=== PATIENT | female | born 1985 | race Caucasian/White ===

== ENCOUNTER 2016-12-04 21:46 | Emergency (ER) | payer BC ==
[~2016-12-04] VITALS: Ht 160 cm; Wt 105.6 kg
[~2016-12-04 21:46] MED LIST: ZFRODT4 SL; [UNRECOGNIZED DRUG - OTHER]
[2016-12-04 21:59] VITALS: TEMP 36.7; Ht 160 cm; Wt 105.6 kg
[2016-12-04] MEDS ORDERED: PRENTAB26 PO (22:48)
[2016-12-04] MEDS ORDERED: ASPI81TA28 PO (22:49)
--- NOTE | 2016-12-04 23:40 | EMERGENCY ROOM VISIT NOTE ---
History Report prepared by Vinny: Hanna Ahuja Under the Supervision of: Dr. Niya Snow D.O. First contact with patient: 23:07 Chief Complaint: FOREIGNBODY ANY BODY PART Stated Complaint: BUG IN EAR, CANT GET OUT History of Present Illness The patient is a 31 year old female who presents to the Emergency Room with complaints of a persistent foreign body to the right ear that began prior to arrival. She currently rates her discomfort as a 2/10 in severity. The patient states that today she was outside and a bug flew into her ear. She states that the bug was flying around, but has not flown out. The patient states that the bug has not been moving around as much. She denies the area being itchy. Source of History: patient Onset: prior to arrival Position: ear (right) Symptom Intensity: 2/10 Quality: other (foreign body) Timing: other (persistent) Review of Systems Patient felt bug moving in the ear. Past Medical & Surgical No active medical problems stated. Family History No pertinent family history stated. Social History Smoking Status: Never Smoker Marital Status: Housing Status: lives with family Current/Historical Medications Scheduled Aspirin (Aspirin Ec), 81 MG PO DAILY Multivit/Min/Iron/Fol Ac/Pren ( Vitamin), 1 TAB PO DAILY Allergies Uncoded Allergies: NKDA (Allergy, Mild, 12/13/05) Physical Exam Vital Signs Date Time Temp Pulse Resp B/P (MAP) Pulse Ox O2 Delivery O2 Flow Rate FiO2 12/04/16 23:58 86 18 139/90 99 12/04/16 21:59 36.7 86 16 163/104 99 Room Air Physical Exam Right Ear Exam: Tympanic membrane appears normal, wing of the insect is flush against Tympanic membrane. Ear canal and TM appear normal. Medical Decision & Procedures ED Course 2332: Past medical records reviewed. The patient was evaluated in room B11A. A complete history and physical exam was performed. Nursing staff performed irrigation with normal saline solution. 2350: I reevaluated the patient and she is doing well. Nursing staff reports that they successfully removed the bug from the patients ear. I discussed the treatment plan with the patient and she verbalized complete understanding and agreement. The patient is ready to go home. Medical Decision This is a 31-year-old female patient who had an insect in the right ear. This was successfully removed with irrigation. Medication Reconcilliation Current Medication List: was personally reviewed by me Blood Pressure Screening Patient's blood pressure: Elevated blood pressure Blood pressure disposition: Elevated BP felt to be situational Impression Primary Impression: Foreign body of ear, right Scribe Attestation The scribe's documentation has been prepared under my direction and personally reviewed by me in its entirety. I confirm that the note above accurately reflects all work, treatment, procedures, and medical decision making performed by me. Departure Information Dispostion Home / Self-Care Referrals No Doctor, Assigned (PCP) Forms HOME CARE DOCUMENTATION FORM, IMPORTANT VISIT INFORMATION, WORK / SCHOOL INSTRUCTIONS Patient Instructions [facility]
[2016-12-04 23:58] VITALS: BP 139/90; PULSE 86; O2SAT 99
[2017-02-03] MEDS ORDERED: GLYB5TAB8 PO (13:10)
== END 2016-12-04 23:58 | disposition home or self-care (01) ==
LOC: C.EDB 21:52
DX: S00.451A Superficial foreign body of right ear, initial encounter (principal); X58.XXXA Exposure to other specified factors, initial encounter; Z79.82 Long term (current) use of aspirin

== ENCOUNTER 2017-02-08 15:33 | Inpatient (IN) | payer BC ==
--- NOTE | 2017-02-03 13:33 | PAT Medication Instructions ---
Service Date Feb 03, 2017. Current Home Medication List Aspirin (Aspirin Ec), 81 MG PO QPM Glyburide (Micronase), 5 MG PO QPM Multivit/Min/Iron/Fol Ac/Pren ( Vitamin), 1 TAB PO QPM Medication Instructions For Your Scheduled Surgery - Follow surgeon's instructions for: Aspirin (Aspirin Ec), 81 MG PO QPM - Take the following medications as scheduled the night before surgery: Multivit/Min/Iron/Fol Ac/Pren ( Vitamin), 1 TAB PO QPM Glyburide (Micronase), 5 MG PO QPM If you have any questions please call us at [phone] or [phone] or [phone]
[2017-02-03 14:56] LABS: BASO % 0.2 %; BASO ABS # 0.02 K/uL (0-0.2); COMPLETE YES; EOS % 1.2 %; HEMATOCRIT 38.8 % (37-47); IG% 0.2 %; LYMPH % 16.6 %; LYMPH ABS # 1.71 K/uL (1.2-3.4); MEAN CELL VOLUME 85.7 fL (80-100); MEAN CORPUSCULAR HEMOGLOBIN 28.5 pg (25-34); MEAN CORPUSCULAR HGB CONC 33.2 g/dl (32-36); MONO % 6.6 %; NEUT % 75.2 %; PLATELET COUNT 205 K/uL (130-400); RED BLOOD COUNT 4.53 M/uL (4.2-5.4); WHITE BLOOD COUNT 10.31 K/uL (4.8-10.8)
[2017-02-03 15:06] LABS: BLOOD UREA NITROGEN 12 mg/dl (7-18); BUN/CREATININE RATIO 18.8 (10-20); CALCIUM 8.8 mg/dl (8.5-10.1); CARBON DIOXIDE 24 mmol/L (21-32); CHLORIDE 106 mmol/L (98-107); CREATININE 0.64 mg/dl (0.60-1.20); GLUCOSE 102 mg/dl (70-99); POTASSIUM 3.8 mmol/L (3.5-5.1); SODIUM 138 mmol/L (136-145)
[~2017-02-08] VITALS: Ht 160 cm; Wt 108.6 kg
[~2017-02-08 15:33] MED LIST changes: +ASPI81TA28 PO; +CITRIC ACID/SODIUM CITRATE 15 ML UDC PO SCH; +GLYB5TAB8 PO; +PRENTAB26 PO; -ZFRODT4 SL; -[UNRECOGNIZED DRUG - OTHER]
[2017-02-08 16:09] VITALS: BMI 42.4
[2017-02-08] MEDS: LACTATED RINGER'S 1000ML 1,000 ML IV SCH ×2 (16:31→17:31)
[2017-02-08] MEDS ORDERED: CEFAZOLIN IV 3,000 MG in DEXTROSE 5% 50ML 50 ML IV SCH (16:45)
[2017-02-08 16:54] LABS: BASO % 0.2 %; BASO ABS # 0.02 K/uL (0-0.2); COMPLETE YES; EOS % 0.9 %; HEMATOCRIT 38.6 % (37-47); IG% 0.1 %; LYMPH % 20.2 %; LYMPH ABS # 1.64 K/uL (1.2-3.4); MEAN CELL VOLUME 86.4 fL (80-100); MEAN CORPUSCULAR HGB CONC 32.4 g/dl (32-36); MEAN PLATELET VOLUME 12.1 fL (7.4-10.4); MONO % 10.7 %; NEUT % 67.9 %; PLATELET COUNT 200 K/uL (130-400); RED BLOOD COUNT 4.47 M/uL (4.2-5.4); WHITE BLOOD COUNT 8.12 K/uL (4.8-10.8)
[2017-02-08 17:10] VITALS: Ht 160 cm; Wt 108.6 kg
[2017-02-08 17:20] LABS: BUN/CREATININE RATIO 24.1 (10-20); CALCIUM 8.8 mg/dl (8.5-10.1); CREATININE 0.66 mg/dl (0.60-1.20)
[2017-02-08 17:23] LABS: ALB/GLOB RATIO 0.6 (0.9-2)
[2017-02-08] MEDS ORDERED: PENICILLIN G POTASSIUM IV 6 MU in DEXTROSE 5% 250ML 250 ML IV ONE (17:30)
[2017-02-08] MEDS ORDERED: LACTATED RINGER'S 1000ML 1,000 ML IV SCH ×2 (18:30→22:43)
--- NOTE | 2017-02-08 19:43 | HISTORY & PHYSICAL EXAMINATION ---
DATE OF ADMISSION: 02/08/2017 CHIEF COMPLAINT: Leakage of fluid. HISTORY OF PRESENT ILLNESS: The patient is a 31-year-old G2, P0-1-0-1 at 39 weeks and 2 days of gestation, who felt leakage of fluid at around 14:50 p.m. this afternoon. It was a big guns and clear. Then she had a little bit of bloody tinged/ pink LOF afterwards. She denies any contractions, abdominal pain, fever, chills, chest pain, shortness of breath, headache or any change in her vision. Baby has been moving. She was originally scheduled for a repeat for this coming 02/11/2017. She has a Her has been complicated by 1) History of prior for severe preeclampsia and nonreassuring heart rate at 27 weeks at [facility]. 2) gestational diabetes A2. She is on glyburide 5 mg daily. 3) GBS positive 4) Obesity class 2. PAST MEDICAL HISTORY: As above. She denies any other problems. PAST SURGICAL HISTORY: section in 2009 and dental surgery, wisdom teeth extraction. MEDICATIONS: vitamins, glyburide 5 mg daily and aspirin 81 mg daily. ALLERGIES: No known drug allergies. SOCIAL HISTORY: The patient denies any smoking, alcohol, or drug use. GYNECOLOGIC HISTORY: The patient has a history of STDs including Chlamydia, gonorrhea and herpes. OBSTETRICAL HISTORY: As above. LABORATORIES: Her blood type is A positive, antibody screen negative. H&H was 13/40, platelets 236, rubella titer positive, RPR nonreactive, hepatitis B surface antigen negative, HIV negative, GC chlamydia cultures were negative. Baseline liver function, creatinine and 24-hour urine protein were normal. Her 1-hour Glucola was elevated at 138 mg/dl and 3-hour OGGT was abnormal meeting criteria for diagnosis of gestational diabetes. GBS culture was positive on 01/09/2017. PHYSICAL EXAMINATION: GENERAL: The patient is alert, oriented x3, not in acute distress. CARDIOVASCULAR SYSTEM: S1, S2, RRR. LUNGS: Clear to auscultation bilaterally. ABDOMEN: Soft, gravid and nontender. EXTREMITIES: Nontender, no edema. VITAL SIGNS: Blood pressure is 137/84, respirations 20, pulse 81 and temperature 98.1. PELVIC: She is grossly ruptured Nitrazine positive and positive ferning on the slide. Cervix is 2 cm dilated, 30% effaced, -5 and unable to feel presenting parts. Bedside ultrasound was done and baby is cephalic. heart rate in 140s, category I [place]: mild irregular contractions every 2-6 minutes. ASSESSMENT AND PLAN: The patient is a 31-year-old G2, P0-1-0-1 at 39 weeks and 2 days of gestation, history of prior , presenting with spontaneous rupture of membranes at term. Vital signs are stable, afebrile. heart rate reassuring. GBS positive. Plan is to admit her, start IV fluids, IV antibiotics and repeat low transverse section. The patient understands the risks of bleeding, infection, injury to surrounding organs like bowels, bladder and ureters, increased risk of blood clots in legs, lungs and adhesions, scarring, future risk of repeat C- section She signed the informed consent. All questions were answered. VIELKA
[2017-02-08] MEDS ORDERED: FENTANYL CITRATE INJ 50 MCG/1 ML 2 ML VIAL ONE (20:59)
[2017-02-08] MEDS ORDERED: MORPHINE SULFATE PF 2MG/2ML SYR ONE (20:59)
[2017-02-08] MEDS ORDERED: OXYTOCIN INJ 10 UNITS/ML VIAL ONE (22:01)
[2017-02-08] MEDS ORDERED: OXYTOCIN INJ 20 UNITS in D5W AND LACTATED RINGERS 1,000 ML IV SCH (22:43)
[2017-02-08] MEDS ORDERED: PROMETHAZINE HCL INJ 25 MG in SODIUM CHLORIDE 0.9% 50ML 50 ML IV PRN (22:45)
[2017-02-08] MEDS ORDERED: LANOLIN OINT EXT PRN ×2 (22:45)
[2017-02-08] MEDS ORDERED: BENZOCAINE 20% AER SPR 82.5 GM CAN EXT PRN (22:45)
[2017-02-08] MEDS ORDERED: MAGNESIUM HYDROXIDE SUSP 30 ML UDC PO PRN (22:45)
[2017-02-08] MEDS ORDERED: DIPHTHERIA/TETANUS/PERTUSSIS 0.5 ML SYR/VIAL IM. ONE (22:45)
[2017-02-08] MEDS ORDERED: HYDROCORTISONE ACETATE 25 MG SUPP PR PRN (22:45)
[2017-02-08] MEDS ORDERED: SENNA 8.6 MG TAB PO PRN (22:45)
[2017-02-08] MEDS ORDERED: MEASLES, MUMPS & RUBELLA VIRUS VIAL SQ. ONE (22:45)
[2017-02-08] MEDS ORDERED: SUPERCREAM 0.870 % 15GM JAR EXT PRN (22:45)
--- NOTE | 2017-02-08 22:47 | [facility] Post Operative Brief Note ---
Immediate Operative Summary Operative Date Feb 08, 2017. Pre-Operative Diagnosis Repeat Caesarean, PROM Post-Operative Diagnosis Repeat Caesarean, AGUSTÍN Procedure(s) Performed Caesaran Delivery of live male child at [address] Palmer Plasterer Apprentice Surgeon(s) Dr. Coughlin Estimated Blood Loss 600ML Findings Viable male , apgars 9/9 Fluids (cc crystalloids) 1500 ML LR Specimens Placenta - Exam cord blood Drains DREW 200 ML Anesthesia SPINAL Complication(s) None Disposition L&D
[2017-02-08] MEDS ORDERED: LACTATED RINGER'S 1000ML 500 ML IV PRN (22:55)
[2017-02-08] MEDS ORDERED: SODIUM CHLORIDE 0.9% 1000ML 1,000 ML IV PRN (22:55)
[2017-02-08] MEDS ORDERED: NALOXONE HCL INJ 0.08 MG in SYRINGE 1.8 ML IV PRN (22:55)
[2017-02-08] MEDS ORDERED: NALOXONE HCL INJ 1 MG in SODIUM CHLORIDE 0.9% 1000ML 1,000 ML IV PRN (22:55)
--- NOTE | 2017-02-08 22:58 | Anesthesiology Progress Note ---
Anesthesia Post Op Note Date & Time Feb 08, 2017 at 22:57 Notes Mental Status: alert / awake / arousable, participated in evaluation Pt Amnestic to Procedure: Yes Nausea / Vomiting: adequately controlled Pain: adequately controlled Airway Patency, RR, SpO2: stable & adequate BP & HR: stable & adequate Hydration State: stable & adequate Neuraxial Anesthesia: was administered, sensory block is resolving Anesthetic Complications: no major complications apparent
[2017-02-08] MEDS ORDERED: NALOXONE HCL 0.4 MG/1 ML VIAL/CARP IV PRN (23:00)
[2017-02-08] MEDS ORDERED: MoRPHine SULFATE PF 1 MG/ML 10 ML AMP/VIAL EPI PRN (23:00)
[2017-02-08] MEDS ORDERED: ONDANSETRON INJ 2 MG/ML 2 ML VIAL IV PRN (23:00)
[2017-02-08] MEDS ORDERED: EpHEDrine SULFATE INJ 50 MG/ML AMP IV PRN (23:00)
[2017-02-08] MEDS ORDERED: MoRPHine SULFATE 2 MG/ML CARP IV PRN (23:00)
[2017-02-08] MEDS ORDERED: MEPERIDINE HCL 25 MG/ML CARP IV PRN (23:00)
[2017-02-08] MEDS ORDERED: NALBUPHINE HCL INJ 10 MG/ML AMP IV PRN (23:00)
[2017-02-08] MEDS ORDERED: DC INTRASPINAL MORPHINE SCH (23:00)
[2017-02-08] MEDS ORDERED: NO NARCOTICS OR SEDATIVES SCH (23:00)
[2017-02-08] MEDS ORDERED: DiphenhydrAMINE HCL 50 MG/ML VIAL IV PRN (23:00)
--- NOTE | 2017-02-08 23:32 | OPERATIVE REPORT ---
DATE OF OPERATION: 02/08/2017 PREOPERATIVE DIAGNOSIS: The patient is a 31-year-old G2, P0-1-0-1 at 39 weeks and 2 days of gestation, presented with premature rupture of membranes at term. History of prior , desires repeat . Declines TOLAC/ . POSTOPERATIVE DIAGNOSIS: Same and intraabdominal adhesions of omentum to anterior abdominal wall. PROCEDURE: Repeat low transverse with Pfannenstiel incision and lysis of adhesions. SURGEON: Dr. Falk. COMPUTER GRAPHIC ARTIST: Dr. Coughlin. ESTIMATED BLOOD LOSS: 600. FLUIDS: 1500 mL of lactated Ringer. SPECIMENS: Placenta and cord blood. DRAINS: Mon drained 200 mL of clear urine. ANESTHESIA: Spinal. COMPLICATIONS: None. FINDINGS: Baby was a viable male in cephalic presentation, delivered at 21:57 p.m. and Apgars 9/9. Weight is 3240 grams which is 7 pounds 2 ounces. Maternal findings: Normal uterus, fallopian tubes and ovaries. There were scarring on the rectus fascia and between the rectus muscles and there were adhesions of omentum onto the anterior abdominal wall and rectus abdominus muscles. PROCEDURE: The patient was taken to the operating room where spinal anesthesia was given without difficulty. She was placed in dorsal supine position with a leftward tilt. She was prepared and draped in usual sterile fashion. A Pfannenstiel skin incision was made and carried through the underlying layer of fascia with the Bovie. There was scarring on the rectus fascia which were reduced with the Lin scissors and the tip of Bovie. The rectus muscles were in the midline. There were noted to be adhesion in the middle of the rectus muscles and there were adhesions of omentum behind the abdominal wall / the rectus sheath. Then the rectus muscles were sharply with with Lin scissors. The adhesions behind the rectus sheet were found to be omentum. They were brought to the midline and they were incised with the tip of Bovie. Attention was made to push the bowels away from the surgical field and the rectus muscles were in the midline completely. The bladder was checked to be down into the pelvis and was not involved to the adhesions. The parietal peritoneal incision was extended superiorly and inferiorly with good visualization of the bladder and bowel and then bladder blade was inserted. The lower uterine segment was found to be free from adhesions as intact. The vesicouterine peritoneum was identified, grasped with pickups, entered sharply with Metzenbaum scissors and bladder flap was created digitally and bladder blade was reinserted. Lower uterine segment was incised in transverse fashion. Incision was extended laterally with the help of bandage scissors and the membranes were ruptured. Clear fluid was obtained and baby's head was delivered without difficulty. There was a nuchal cord around the neckx1 which was loose. It was reduced and the shoulders were delivered with minimal traction and mouth and nose were suctioned. Cord was clamped x2 and cut. The baby was handed off to the awaiting director advertising, Dr. Cabrales. Cord blood was obtained and tt was a 3-vessel cord. The placenta was delivered manually as intact and complete. Uterus was exteriorized, cleared of all clots and debris. The uterine incision was repaired with 0 Vicryl in a running locked fashion. A second imbricating layer was placed with 0 Vicryl in a running locked fashion and excellent hemostasis was achieved. Posterior cul-de-sac was checked to be normal, bilateral normal ovaries were seen and it was irrigated with warm normal saline and suctioned. The uterus was returned to the abdomen and pelvis was irrigated with warm normal saline and suctioned and incision was checked to be again hemostatic. Parietal peritoneum was identified, grasped with Precious clamps. It was found to be attached to the rectus muscle bilaterally. The parietal peritoneum with the rectus muscles were reapproximated with 3-0 Vicryl in a running fashion and the rectus fascia was reapproximated with #1 Vicryl in a running fashion starting from both corners meeting in the midline and subcuticular fat tissue was brought together with 3-0 Vicryl in a running fashion. The skin was closed with 4-0 Monocryl in a subcuticular fashion. The patient tolerated the procedure well. Sponge, lap, needle and instrument counts were correct x3. She was given 3 grams of cefazolin before surgery. She was taken to recovery room in stable condition. No complications happened. I and Dr Coughlin was present during the whole procedure. I attest to the content of the Intraoperative Record and any orders documented therein. Any exceptions are noted below. VIELKA
[2017-02-09] VITALS (25 sets, daily range): BP systolic 113–138; BP diastolic 75–87; PULSE 70–89; TEMP 36.6–36.9; O2SAT 95–100
[2017-02-09] MEDS: OXYTOCIN INJ 20 UNITS in LACTATED RINGER'S 1000ML 1,000 ML IV SCH ×2 (00:48→09:55)
[2017-02-09] MEDS: KETOROLAC TROMETHAMINE 30 MG/ML VIAL IV. PRN ×3 (03:38→19:28)
[2017-02-09 06:51] LABS: BASO % 0.3 %; BASO ABS # 0.03 K/uL (0-0.2); COMPLETE YES; EOS % 0.6 %; HEMATOCRIT 35.1 % (37-47); IG% 0.3 %; LYMPH % 14.6 %; LYMPH ABS # 1.73 K/uL (1.2-3.4); MEAN CELL VOLUME 85.6 fL (80-100); MEAN CORPUSCULAR HEMOGLOBIN 28.8 pg (25-34); MEAN CORPUSCULAR HGB CONC 33.6 g/dl (32-36); MEAN PLATELET VOLUME 11.6 fL (7.4-10.4); MONO % 5.1 %; NEUT % 79.1 %; PLATELET COUNT 163 K/uL (130-400); WHITE BLOOD COUNT 11.86 K/uL (4.8-10.8)
[2017-02-09] MEDS: FERROUS SULFATE 325 MG TAB PO SCH (09:12)
[2017-02-09] MEDS: DOCUSATE SODIUM 100 MG CAP PO SCH ×2 (09:12→20:05)
[2017-02-09] MEDS: PRENATAL VITAMIN TAB PO SCH (09:13)
[2017-02-09] MEDS: SIMETHICONE 80 MG CHEW PO SCH ×4 (09:14→20:05)
--- NOTE | 2017-02-09 11:09 | Surgery Progress Note ---
Surgery Progress Note Date of Service Feb 09, 2017. Subjective Post OP Day: 1 + feeling well Objective Vital Signs: Date Time Temp Pulse Resp B/P (MAP) Pulse Ox O2 Delivery O2 Flow Rate FiO2 02/09/17 08:00 98 Room Air 02/09/17 08:00 98 Room Air 02/09/17 07:30 18 98 02/09/17 07:27 36.7 80 20 135/76 (95) 100 Room Air 02/09/17 06:20 16 95 02/09/17 05:30 16 100 02/09/17 04:30 16 100 02/09/17 04:30 36.7 79 16 132/80 (97) 100 Room Air 02/09/17 03:15 18 98 02/09/17 02:15 36.6 70 16 125/78 (94) 99 Room Air 02/09/17 02:10 16 99 02/09/17 01:10 96 Room Air 02/09/17 01:10 36.7 75 18 138/87 (104) 96 Room Air 02/09/17 01:10 96 Room Air 02/09/17 01:10 18 96 Abdomen: non tender, non distended, soft Extremities: non-tender, normal inspection, no pedal edema Laboratory Results: Results Past 24 Hours Test 02/08/17 16:41 02/09/17 06:32 Range/Units White Blood Count 8.12 11.86 4.8-10.8 K/uL Red Blood Count 4.47 4.10 4.2-5.4 M/uL Hemoglobin 12.5 11.8 12.0-16.0 g/dL Hematocrit 38.6 35.1 37-47 % Mean Corpuscular Volume 86.4 85.6 80-100 fL Mean Corpuscular Hemoglobin 28.0 28.8 25-34 pg Mean Corpuscular Hemoglobin Concent 32.4 33.6 32-36 g/dl Platelet Count 200 163 130-400 K/uL Mean Platelet Volume 12.1 11.6 7.4-10.4 fL Neutrophils (%) (Auto) 67.9 79.1 % Lymphocytes (%) (Auto) 20.2 14.6 % Monocytes (%) (Auto) 10.7 5.1 % Eosinophils (%) (Auto) 0.9 0.6 % Basophils (%) (Auto) 0.2 0.3 % Neutrophils # (Auto) 5.51 9.40 1.4-6.5 K/uL Lymphocytes # (Auto) 1.64 1.73 1.2-3.4 K/uL Monocytes # (Auto) 0.87 0.60 0.11-0.59 K/uL Eosinophils # (Auto) 0.07 0.07 0-0.5 K/uL Basophils # (Auto) 0.02 0.03 0-0.2 K/uL RDW Standard Deviation 47.3 46.7 36.4-46.3 fL RDW Coefficient of Variation 15.0 14.9 11.5-14.5 % Immature Granulocyte % (Auto) 0.1 0.3 % Immature Granulocyte # (Auto) 0.01 0.03 0.00-0.02 K/uL Sodium Level 139 136-145 mmol/L Potassium Level 4.0 3.5-5.1 mmol/L Chloride Level 109 98-107 mmol/L Carbon Dioxide Level 21 21-32 mmol/L Anion Gap 9.0 3-11 mmol/L Blood Urea Nitrogen 16 7-18 mg/dl Creatinine 0.66 0.60-1.20 mg/dl Est Creatinine Clear Calc Drug Dose 146.0 ml/min Estimated GFR () 136.4 Estimated GFR (Non- 117.7 BUN/Creatinine Ratio 24.1 10-20 Random Glucose 87 70-99 mg/dl Calcium Level 8.8 8.5-10.1 mg/dl Total Bilirubin 0.1 0.2-1 mg/dl Aspartate Amino Transf (AST/SGOT) 21 15-37 U/L Alanine Aminotransferase (ALT/SGPT) 16 12-78 U/L Alkaline Phosphatase 104 45-117 U/L Total Protein 6.4 6.4-8.2 gm/dl Albumin 2.5 3.4-5.0 gm/dl Globulin 3.9 2.5-4.0 gm/dl Albumin/Globulin Ratio 0.6 0.9-2 Assessment & Plan regular diet POD#1 advance diet/care
[2017-02-09] MEDS ORDERED: MEPERIDINE HCL 50 MG/ML CARP IV PRN ×2 (21:30)
[2017-02-09] MEDS ORDERED: ONDANSETRON INJ 2 MG/ML 2 ML VIAL IV PRN (21:30)
[2017-02-09] MEDS ORDERED: OXYCODONE/ACETAMINOPHEN 5-325 TAB PO PRN (21:30)
[2017-02-09] MEDS ORDERED: KETOROLAC TROMETHAMINE 30 MG/ML VIAL IV. PRN (21:30)
[2017-02-09] MEDS ORDERED: DiphenhydrAMINE HCL 50 MG/ML VIAL IV PRN (21:30)
[2017-02-09] MEDS ORDERED: BISACODYL 5 MG TABEC PO ONE (22:00)
[2017-02-09] MEDS: IBUPROFEN 600 MG TAB PO PRN (23:24)
--- NOTE | 2017-02-10 07:44 | OB/GYN Progress Note ---
STEAM TABLE ASSOCIATE Progress Note Date of Service Feb 10, 2017. Subjective conversation w/ patient, physical exam Ambulation: ambulating normally Voiding: no voiding problems Passing Gas: Yes Diet Tolerance: Regular Diet Lochia: Small Pain: 4/10 Notes: Doing well, pain well controlled. Ambulating without difficulty. Tolerating regular diet, +flatus, -BM. Objective Vital Signs Date Time Temp Pulse Resp B/P (MAP) Pulse Ox O2 Delivery O2 Flow Rate FiO2 02/09/17 23:25 36.6 89 18 113/75 (88) 96 Room Air 02/09/17 23:25 96 Room Air 02/09/17 21:00 16 100 02/09/17 20:15 36.8 84 16 124/80 (95) 98 Room Air 02/09/17 20:15 98 Room Air 02/09/17 20:00 16 99 02/09/17 19:00 15 100 02/09/17 17:00 16 99 02/09/17 16:00 36.9 87 16 121/80 (94) 100 Room Air 02/09/17 16:00 16 99 02/09/17 16:00 Room Air 02/09/17 14:30 16 96 02/09/17 13:30 20 96 02/09/17 13:00 36.9 80 18 126/82 (97) 98 Room Air 02/09/17 12:30 18 98 02/09/17 11:30 18 96 02/09/17 10:30 18 98 02/09/17 09:30 18 98 02/09/17 08:30 16 95 02/09/17 08:00 98 Room Air 02/09/17 08:00 98 Room Air Physical Exam General Appearance: WELL-APPEARING Respiratory/Chest: chest non-tender, lungs clear Cardiovascular: regular rate, rhythm Abdomen: normal bowel sounds, soft Fundus: Firm Incision Description: Clean, Dry & Intact Extremities: normal range of motion, non-tender, no calf tenderness Assessment and Plan Post-Op Day Number: 2 Continue Routine Care: -Continue routine postop care -Incision dressing removed and is c/d/i -Anticipate d/c home tomorrow
[2017-02-10] MEDS: SIMETHICONE 80 MG CHEW PO SCH ×4 (08:42→19:59)
[2017-02-10] MEDS: PRENATAL VITAMIN TAB PO SCH (08:42)
[2017-02-10] MEDS: FERROUS SULFATE 325 MG TAB PO SCH (08:42)
[2017-02-10] MEDS: DOCUSATE SODIUM 100 MG CAP PO SCH ×2 (08:42→19:59)
[2017-02-10 08:45] VITALS: BP 118/77; PULSE 84; TEMP 36.9; O2SAT 96
[2017-02-10] MEDS: IBUPROFEN 600 MG TAB PO PRN ×3 (08:45→21:02)
[2017-02-10 15:45] VITALS: BP 125/84; PULSE 77; TEMP 36.8; O2SAT 96
[2017-02-10] MEDS: OXYCODONE/ACETAMINOPHEN 5-325 TAB PO PRN ×2 (16:59→21:03)
[2017-02-10] MEDS ORDERED: BISACODYL 10 MG SUPP PR PRN (22:45)
[2017-02-10 23:50] VITALS: BP_SYST 103; BP_SYST 126; BP_DIAS 68; BP_DIAS 81; PULSE 66; PULSE 81; TEMP 36.6
[2017-02-11] MEDS: IBUPROFEN 600 MG TAB PO PRN ×2 (05:32→10:22)
[2017-02-11] MEDS: OXYCODONE/ACETAMINOPHEN 5-325 TAB PO PRN ×2 (05:33→10:21)
[2017-02-11 07:27] VITALS: BP 126/81; PULSE 62; TEMP 36.8; O2SAT 95
[2017-02-11] MEDS: DOCUSATE SODIUM 100 MG CAP PO SCH (08:06)
[2017-02-11] MEDS: FERROUS SULFATE 325 MG TAB PO SCH (08:06)
[2017-02-11] MEDS: PRENATAL VITAMIN TAB PO SCH (08:06)
[2017-02-11] MEDS: SIMETHICONE 80 MG CHEW PO SCH (08:08)
[2017-02-11] MEDS ORDERED: OXYC-57 PO (09:21)
[2017-02-11] MEDS ORDERED: MTR600X PO (09:21)
--- NOTE | 2017-02-11 09:23 | Discharge Instructions ---
Discharge Instructions Date of Service Feb 11, 2017. Admission Reason for Admission: Leakage Of Amniotic Fluid Discharge Discharge Diagnosis / Problem: term pregnacy delivered Discharge Goals Goal(s): Routine recovery after Activity Recommendations Activity Limitations: as noted below Lifting Limitations: no more than 10 pounds Exercise/Sports Limitations: gradually increase as tolerated May Resume Sexual Activity: after follow-up appointment Shower/Bathe: no limitations Driving or Machine Use: resume 3 days after discharge . Instructions / Follow-Up Instructions / Follow-Up ACTIVITY RECOMMENDATIONS: * Gradual return to full activity over the next 2-3 weeks. * No lifting - nothing heavier than baby over the next 2-3 weeks. * Do not engage in vigorous exercise, sexual activity or sports until cleared by your physician. * Do not drive or operate any motorized equipment until cleared by your physician. * You may shower/bathe daily. BREAST CARE: If you are not breast feeding: * Wear a supportive bra 24 hours a day for one to two weeks. * Avoid stimulating your breasts and nipples as much as possible during the first few weeks after delivery. * When taking a shower, have the warm water hit your back, not breasts. * When your breasts feel full, apply ice packs. Usually three to four times a day helps ease the discomfort. * Take a mild pain medication (Tylenol/Motrin) when you are uncomfortable. If breast feeding: * Use breast milk to lubricate nipples. Lansinoh cream may be used for sore nipples. You do not need to remove cream prior to breast feeding. If using a different brand of cream, check the label for directions regarding removal of cream prior to nursing. * Wear a supportive bra. * If having problems with breasts or breast feeding, call a loan consultant or your health care provider. OVER THE COUNTER MEDICATION: * For discomfort or pain, you may use Acetaminophen (Tylenol), Ibuprofen (Advil ), or Naproxen (Aleve) following the package directions. * For constipation you may use Colace following the package directions. SPECIAL CARE INSTRUCTIONS: When you are discharged from the hospital, it is important for you to follow the instructions listed below: * During the first week at home, you should be able to care for yourself and your baby. In addition, the usual light household activities are encouraged. * Limit your activities to the way you feel. Do not try to clean the house or move furniture. Be sensible. * If you actively engage in sports and have done so up until the time of your delivery, you may resume these activities as soon as you feel able. This may take up to one month or even longer. Use good judgment. * Continue to take your vitamins for at least six weeks after the of your baby. * Your diet need not be limited unless you were on a special diet before your delivery. Breast-feeding mothers need around 2500 calories per day and at least 64-80 ounces of fluid per day (8 to 10 glasses). * You should eat foods from the four major food groups. Crash diets or fad diets are to be avoided. Eating lean meats, fresh fruits and vegetables, low-fat dairy products, high fiber foods and a regular exercise program, will help you get back to your pre- weight without putting your health at risk. * Constipation is sometimes a problem after delivery. Take a mild laxative as needed. If breast feeding, Milk of Magnesia is acceptable to use. You may use a suppository or Fleets enema if no episiotomy. * A daily shower or tub bath is suggested. Be sure to thoroughly and gently dry the perineum. * A bloody vaginal discharge will usually continue until around four weeks post . A small amount of bleeding may continue for as long as six weeks. Vaginal discharge changes from the bright red bleeding after delivery to pink then brownish and finally yellowish-pink before becoming white and disappearing. * Bleeding may increase with activity. Your first period may come in 4-8 weeks. If you are breast feeding, your period may be delayed even longer. * [place] (sex) can begin whenever both you and your partner feel comfortable and do not have any form of genital infection. It is recommended that you wait at least six weeks for internal and external healing to occur. If you have questions, please talk to your health care practitioner. A condom should be used to prevent infection and . * Foreplay, gentle intercourse and lubrication is very important the first several times to prevent pain. A water-based lubricant such as K-Y jelly or Astroglide may be used. * Tampons and/or Douching should be avoided until after six weeks check-up. * If you have RH negative blood and your baby is RH positive, you will receive RHOGAM by injection prior to discharge. The nurse will give you a card to keep with you that has the date and place that you received RHOGAM after delivery. * During your care, you had a Rubella screen done to check for the presence of rubella antibodies in your blood. If your test was negative, you will receive a Rubella vaccine prior to discharge. This vaccine may cause a fever, soreness at the injection site and flu-like symptoms. If these symptoms persist, notify your health care practitioner. is not advised for three months after a Rubella vaccine. * Verbalizes understanding of car seat law as reviewed with patient nursing. * Car Seat hand-out given and reviewed with patient by nursing. * Shaken baby information reviewed with patient by nursing. Call you doctor if: * Heavy bleeding (saturating several pads an hour) or passing clots the size of your fist. * A fever >101 degrees F (38.3 degrees C) on two occasions four hours apart and /or chills. * Unusual pain in the pelvic or vaginal areas. Pain should improve each day . * Call the doctor for any increased redness, drainage or swelling around the incision and any pain unrelieved by prescribed pain medication. * Any signs or symptoms of phlebitis (possible blood clots forming in the veins ): leg pain, warm, red or swollen area on leg. * "Baby Blues" lasting longer than two weeks. If you have any questions or concerns, call your health care practitioner at . FOLLOW-UP VISIT: * Incision check (staple removal) in 1 week. Please call doctor's office at to set up appointment. * Please call the office at to schedule a 6 week examination. It is important you keep this appointment. * It is important for you to make arrangements for either yearly or twice yearly check-ups thereafter. Current Hospital Diet Patient's current hospital diet: Regular Diet Discharge Diet Recommended Diet: Regular OB Diet Procedures Procedures Performed: Caesaran Delivery of live male child at 2157 Pending Studies Studies pending at discharge: no Medical Emergencies . Who to Call and When: Medical Emergencies: If at any time you feel your situation is an emergency, please call 911 immediately. . Non-Emergent Contact Non-Emergency issues call your: Primary Care Provider . . "Provider Documentation" section prepared by Gilbert Clemente. . VTE Core Measure Inpt VTE Proph given/why not?: Treatment not indicated
--- NOTE | 2017-02-11 09:24 | Surgery Progress Note ---
Surgery Progress Note Date of Service Feb 11, 2017. Subjective Post OP Day: 3 + feeling well, + ambulating, + flatus, + pain controlled, + diet Objective Vital Signs: Date Time Temp Pulse Resp B/P (MAP) Pulse Ox O2 Delivery O2 Flow Rate FiO2 02/11/17 07:40 Room Air 02/11/17 07:27 36.8 62 20 126/81 (96) 95 Room Air 02/10/17 23:50 Room Air 02/10/17 23:50 36.6 66 18 126/81 (96) Room Air 02/10/17 15:45 96 Room Air 02/10/17 15:45 36.8 77 18 125/84 (98) 96 Room Air Abdomen: non tender, non distended, soft Incision(s): clean, dry, intact Extremities: normal range of motion, non-tender, no pedal edema, no calf tenderness Assessment & Plan POD#3 discharged POD#1 advance diet/care
[2017-02-11 11:55] VITALS: BP_DIAS 81; PULSE 62; TEMP 36.8
--- NOTE | 2017-02-14 21:37 | DISCHARGE SUMMARY ---
DETAILS OF HOSPITAL STAY: The patient is a 31-year-old G2, P0-1-0-1 at 39 weeks and 2 days of gestation; who presented to labor and delivery on 02/08/2017 with leakage of fluid and spontaneous rupture of membranes. She had a history of prior and she was scheduled for repeat on 02/11/2017. She was confirmed to be spontaneously ruptured and having mild contractions with a category 1 heart rate. She desired to have repeat on the day of admission. The patient had repeat low transverse with Pfannenstiel skin incision and lysis of adhesions, delivered a viable male , Apgars 9/9, no complications happened. See dictated operative note for details. On postop day #1, patient was doing well. Vital signs stable, afebrile. Urine output was good. Her H&H was stable at 11.8/35.1. Her physical exam was unremarkable. The incision was clean, dry and intact. She was advanced to regular diet. Mon was discontinued and she ambulated. On postop day #2, patient was doing well, passing gas, tolerating regular diet. Pain was under control. Vital signs stable, afebrile. Physical exam was normal. Incision was clean, dry and intact. On postop day #3, patient was doing well, passing gas and moving her bowels and tolerating regular diet. Vital signs stable, afebrile. Ambulating without difficulty and her incision was clean, dry and intact. Physical exam was unremarkable and she was discharged home on 02/11/[address] Clemente. Discharge instructions were given. Prescriptions were written and she is to be followed in the office in a week. All questions were answered. VIELKA
== END 2017-02-11 11:55 | disposition home or self-care (01) | DRG 766 ==
LOC: C.OPB 15:33 → C.LD 15:34 → C.OPB 16:32 → C.OBG 02-09 01:21 → EDSTATUS 02-11 07:30
PROVIDERS: ADMIT Obstetrics & Gynecology; ATTEND Obstetrics & Gynecology
PROC: 10D00Z1 Extraction of Products of Conception, Low, Open Approach (ICD-10-PCS; principal; 2017-02-08 20:30)
DX: O34.211 Maternal care for low transverse scar from previous cesarean delivery (principal); O24.425 Gestational diabetes mellitus in childbirth, controlled by oral hypoglycemic drugs; O99.824 Streptococcus B carrier state complicating childbirth; O99.214 Obesity complicating childbirth; O42.02 Full-term premature rupture of membranes, onset of labor within 24 hours of rupture; Z37.0 Single live birth; Z3A.39 39 weeks gestation of pregnancy; Z79.84 Long term (current) use of oral hypoglycemic drugs; E66.9 Obesity, unspecified